=== PATIENT | male | born 1940 | race Caucasian/White ===

== ENCOUNTER 2022-07-27 11:03 | Day surgery (SDC) | payer OTHER ==
[~2022-07-27] VITALS: Ht 182.9 cm; Wt 82.1 kg
[~2022-07-27 11:03] MED LIST: ACET500 PO; CEPH500 PO; HYDACE5 PO; OXYACE5T PO
--- NOTE | 2022-07-27 11:18 | NUR ---
07/27/22 Manolo8 Roselia Matamoros [address] AT 1116
[2022-07-27 12:44] VITALS: BP 119/65
== END 2022-07-27 12:26 | disposition home or self-care (01) ==
LOC: ORSCSDS 11:03
PROVIDERS: Ophthalmology
PROC: 08DJ3ZZ Extraction of Right Lens, Percutaneous Approach (ICD-10-PCS; principal; 2022-07-27 12:00)
DX: H25.11 Age-related nuclear cataract, right eye (principal); G47.33 Obstructive sleep apnea (adult) (pediatric); J44.9 Chronic obstructive pulmonary disease, unspecified
CPT/HCPCS: J2250; J3010; J3301; J7040; V2632

== ENCOUNTER 2022-08-03 10:37 | Day surgery (SDC) | payer OTHER ==
[~2022-08-03] VITALS: Ht 182.9 cm; Wt 82.3 kg
--- NOTE | 2022-08-03 11:13 | NUR ---
08/03/22 1113 Roselia Matamoros AT [address]6 [address] 1106
[2022-08-03 12:31] VITALS: BP 119/77
== END 2022-08-03 12:30 | disposition home or self-care (01) ==
LOC: ORSCSDS 10:37
PROVIDERS: Ophthalmology
PROC: 08DK3ZZ Extraction of Left Lens, Percutaneous Approach (ICD-10-PCS; principal; 2022-08-03 12:00)
DX: H25.12 Age-related nuclear cataract, left eye (principal); Z96.1 Presence of intraocular lens; J44.9 Chronic obstructive pulmonary disease, unspecified; G47.33 Obstructive sleep apnea (adult) (pediatric); H52.202 Unspecified astigmatism, left eye
CPT/HCPCS: J2250; J3010; J3301; J7040; V2632